=== PATIENT | female | born 1980 | race Caucasian/White ===

== ENCOUNTER 2016-10-17 13:25 | Emergency (ER) | payer OTHER ==
[~2016-10-17] VITALS: Ht 157.5 cm; Wt 103.9 kg
[~2016-10-17 13:25] MED LIST: CETI10TA16 PO; CIPR250T30 PO; FLUC150T PO; IBUP-1027 PO; OXYC-323 PO
[2016-10-17] MEDS ORDERED: IV NORMAL SALINE 1000ML BAG 1,000 ML IV ONE (14:00)
[2016-10-17] MEDS ORDERED: ONDANSETRON PF 4 MG/2 ML VIAL. IV ONE (14:00)
[2016-10-17 14:05] LABS: BILIRUBIN,URINE NEGATIVE (NEG); GLUCOSE,URINE NEGATIVE (NEG); NITRITE,URINE NEGATIVE (NEG); PROTEIN,URINE NEGATIVE (NEG-TRACE); UROBILINOGEN,URINE 0.2 mg/dL (0.2 mg/dL)
[2016-10-17 14:06] LABS: BASO % 1 % (0-3); EOS % 2 % (0-3); HEMATOCRIT 40.6 % (36.0-47.0); HEMOGLOBIN 13.5 g/dL (12.0-15.5); LYMPH % 41 % (24-48); MEAN CORPUSCULAR HEMOGLOBIN 31 pg (25-35); MEAN CORPUSCULAR HGB CONC 33 g/dL (31-37); MEAN CORPUSCULAR VOLUME 94 fL (79-100); MONO % 7 % (0-9); NEUT % 49 % (31-73); PLATELET COUNT 220 x10^3/uL (140-400); RED BLOOD COUNT 4.31 x10^6/uL (3.50-5.40); RED CELL DISTRIBUTION WIDTH 14.1 % (11.5-14.5)
[2016-10-17] MEDS: fentaNYL PF VIAL 100 MCG/2 ML VIAL IV PRN ×3 (14:09→15:35)
[2016-10-17 14:17] LABS: CALCIUM 8.6 mg/dL (8.5-10.1); CREATININE 0.9 mg/dL (0.6-1.0); GFR 72.1; POTASSIUM 3.9 mmol/L (3.5-5.1)
[2016-10-17 14:22] LABS: ALBUMIN/GLOBULIN RATIO 1.1 (1.0-1.7); TOTAL BILIRUBIN 0.2 mg/dL (0.2-1.0); TOTAL PROTEIN 7.7 g/dL (6.4-8.2)
[2016-10-17 14:29] LABS: BACTERIA,URINE MODERATE /HPF (0-FEW); RBC,URINE OCC /HPF (0-2); SQUAMOUS EPITHELIAL CELL,UR FEW /LPF
--- NOTE | 2016-10-17 14:57 | RAD ---
Abdominal ultrasound, 10/17/2016: History: Right upper quadrant pain The gallbladder is not well distended, apparently due to the patient's nonfasting state. No gallstones are seen. No bile duct dilatation is evident. The liver demonstrates increased echogenicity in a diffuse pattern most compatible with fatty change. No hepatic mass is evident. The visualized portions of the pancreas, spleen and both kidneys are unremarkable. The abdominal aorta and inferior vena cava show no abnormality. No free fluid is evident in the abdomen. IMPRESSION: 1. Hepatic steatosis. 2. No acute abdominal abnormality is detected.
[2016-10-17 15:04] VITALS: BP 112/70
[2016-10-17] MEDS ORDERED: ONDA4TAB10 SL (15:30)
[2016-10-17] MEDS ORDERED: RANI150T6 PO (15:30)
--- NOTE | 2016-10-17 15:30 | PHYS DOC ---
Past Medical History Past Medical History: High Cholesterol, Other Additional Past Medical Histor: hx iv meth use Past Surgical History: Tubal ligation, Other Additional Past Surgical Histo: jaw repair Alcohol Use: None Drug Use: None Social History Narrative: hx iv meth user Adult General Chief Complaint Chief Complaint: ABDOMINAL PAIN HPI HPI Patient is a 35 year old female who presents with abdominal pain. THe patient reports 3 day history of RUQ abdominal pain associated with nausea & vomiting x 2. She denies fevers/chills, hematemesis, diarrhea, constipation, hematochezia/ melena, dysuria/hematuria. Denies previous history of similar symptoms. Pain worse when eating greasy food. She has history of tubal ligation. Family history of gallbladder disease. Review of Systems Review of Systems Constitutional: Denies fever or chills Eyes: Denies change in visual acuity HENT: Denies nasal congestion or sore throat Respiratory: Denies cough or shortness of breath Cardiovascular: Denies chest pain or edema GI: Reports abdominal pain, nausea, vomiting, denies bloody stools or diarrhea : Denies dysuria or hematuria Musculoskeletal: Denies back pain or joint pain Integument: Denies rash or skin lesions Neurologic: Denies headache, focal weakness or sensory changes Current Medications Current Medications Current Medications Medications (Trade) Dose Ordered Sig/Ruel Start Time Stop Time Status Last Admin Dose Admin Fentanyl Citrate (Fentanyl 2ml Vial) 50 mcg PRN Q15MIN PRN 10/17/16 14:00 10/17/16 15:51 DC 10/17/16 15:35 50 MCG Ondansetron HCl (Zofran) 4 mg 1X ONCE 10/17/16 14:00 10/17/16 14:01 DC 10/17/16 14:10 4 MG Sodium Chloride 1,000 ml @ 1,000 mls/hr 1X ONCE 10/17/16 14:00 10/17/16 14:59 DC 10/17/16 14:10 1,000 MLS/HR Allergies Allergies Allergies Coded Allergies Type Severity Reaction Last Updated Verified No Known Drug Allergies 11/22/15 No Physical Exam Physical Exam Constitutional: obese, no acute distress, non-toxic appearance. HENT: Normocephalic, atraumatic, bilateral external ears normal, oropharynx moist, nose normal. Eyes: conjunctiva normal, no discharge. Neck: supple, no stridor. Cardiovascular: RRR, no murmurs, no edema. Lungs & Thorax: LCTAB, no wheezing, no respiratory distress. Abdomen: soft, RUQ tenderness without rebound/guarding, no masses or pulsatile masses, nondistended. Skin: Warm, dry, no erythema, no rash. Back: No CVA tenderness. Extremities: No tenderness, no edema. Neurologic: Alert and oriented X 3, no focal deficits noted. Psychologic: Affect normal, judgement normal, mood normal. Current Patient Data Vital Signs Vital Signs Date Time Temp Pulse Resp B/P (MAP) Pulse Ox O2 Delivery O2 Flow Rate FiO2 10/17/16 15:04 80 14 112/70 (84) 99 Room Air 10/17/16 13:41 98.0 98.0 Lab Values Laboratory Tests Test 10/17/16 12:47 10/17/16 13:35 10/17/16 13:54 POC Urine HCG, Qualitative Hcg negative (Negative) Urine Collection Type Void Urine Color Yellow Urine Clarity Clear Urine pH 8.0 Urine Specific Beaver 1.020 Urine Protein Negative mg/dL (NEG-TRACE) Urine Glucose (UA) Negative mg/dL (NEG) Urine Ketones (Stick) Negative mg/dL (NEG) Urine Blood Negative (NEG) Urine Nitrite Negative (NEG) Urine Bilirubin Negative (NEG) Urine Urobilinogen Dipstick 0.2 mg/dL (0.2 mg/dL) Urine Leukocyte Esterase Trace (NEG) Urine RBC Occ /HPF (0-2) Urine WBC 1-4 /HPF (0-4) Urine Squamous Epithelial Cells Few /LPF Urine Amorphous Sediment Present /HPF Urine Bacteria Moderate /HPF (0-FEW) Urine Mucus Slight /LPF Sodium Level 142 mmol/L (136-145) Potassium Level 3.9 mmol/L (3.5-5.1) Chloride Level 109 mmol/L (98-107) H Carbon Dioxide Level 20 mmol/L (21-32) L Anion Gap 13 (6-14) Blood Urea Nitrogen 11 mg/dL (7-20) Creatinine 0.9 mg/dL (0.6-1.0) Estimated GFR (Cockcroft-Gault) 72.1 BUN/Creatinine Ratio 12 (6-20) Glucose Level 98 mg/dL (70-99) Calcium Level 8.6 mg/dL (8.5-10.1) Total Bilirubin 0.2 mg/dL (0.2-1.0) Aspartate Amino Transferase (AST) 20 U/L (15-37) Alanine Aminotransferase (ALT) 31 U/L (14-59) Alkaline Phosphatase 70 U/L (46-116) Total Protein 7.7 g/dL (6.4-8.2) Albumin 4.0 g/dL (3.4-5.0) Albumin/Globulin Ratio 1.1 (1.0-1.7) Lipase 218 U/L (73-393) White Blood Count 5.0 x10^3/uL (4.0-11.0) Red Blood Count 4.31 x10^6/uL (3.50-5.40) Hemoglobin 13.5 g/dL (12.0-15.5) Hematocrit 40.6 % (36.0-47.0) Mean Corpuscular Volume 94 fL (79-100) Mean Corpuscular Hemoglobin 31 pg (25-35) Mean Corpuscular Hemoglobin Concent 33 g/dL (31-37) Red Cell Distribution Width 14.1 % (11.5-14.5) Platelet Count 220 x10^3/uL (140-400) Neutrophils (%) (Auto) 49 % (31-73) Lymphocytes (%) (Auto) 41 % (24-48) Monocytes (%) (Auto) 7 % (0-9) Eosinophils (%) (Auto) 2 % (0-3) Basophils (%) (Auto) 1 % (0-3) Neutrophils # (Auto) 2.4 x10^3uL (1.8-7.7) Lymphocytes # (Auto) 2.0 x10^3/uL (1.0-4.8) Monocytes # (Auto) 0.4 x10^3/uL (0.0-1.1) Eosinophils # (Auto) 0.1 x10^3/uL (0.0-0.7) Basophils # (Auto) 0.0 x10^3/uL (0.0-0.2) Laboratory Tests 10/17/16 13:54 Laboratory Tests 10/17/16 13:35 EKG EKG [] Radiology/Procedures Radiology/Procedures PROCEDURE: ABDOMEN COMPLETE Abdominal ultrasound, 10/17/2016: History: Right upper quadrant pain The gallbladder is not well distended, apparently due to the patient's nonfasting state. No gallstones are seen. No bile duct dilatation is evident. The liver demonstrates increased echogenicity in a diffuse pattern most compatible with fatty change. No hepatic mass is evident. The visualized portions of the pancreas, spleen and both kidneys are unremarkable. The abdominal aorta and inferior vena cava show no abnormality. No free fluid is evident in the abdomen. IMPRESSION: 1. Hepatic steatosis. 2. No acute abdominal abnormality is detected. DICTATED and SIGNED BY: DENISHA FUNK MD DATE: 10/17/16 1849[] Course & Med Decision Making Course & Med Decision Making Pertinent Labs and Imaging studies reviewed. (See chart for details) The patient presents with RUQ pain & vomiting. Gave IV fluids, zofran, pain medication. Labs unremarkable. US shows contracted gallbladder but no obvious stones or cholecystitis. Patient felt better. Recommend rest, PO hydration, zofran for nausea, try zantac, follow up with primary care in 2-3 days. Come back for high fever, severe pain, uncontrolled vomiting, any otherwise worsening condition. Discharged home in stable condition. [] Dragon Disclaimer Dragon Disclaimer This electronic medical record was generated, in whole or in part, using a voice recognition dictation system. Departure Departure Impression: Primary Impression: Abdominal pain Disposition: 01 HOME, SELF-CARE Condition: IMPROVED Referrals: IRVIN TAVAREZ MD (PCP) Patient Instructions: Abdominal Pain, [id number] Additional Instructions: You were seen in the emergency department today for abdominal pain. Labs, urine test, and ultrasound did not show serious cause of symptoms. Please rest, drink fluids, take Zofran for nausea, use Zantac for pain. Follow-up with primary care physician in 2-3 days if not improving. Return to the emergency department for high fever, severe pain, uncontrolled vomiting, any otherwise worsening condition. Scripts Ondansetron (ZOFRAN ODT) 4 Mg Tab.rapdis 1 TAB SL Q8HRS, #10 TAB Prov: SILVIO SHEPHERD MD 10/17/16 Ranitidine Hcl (ZANTAC) 150 Mg Tablet 150 MG PO DAILY, #15 TAB Prov: SILVIO SHEPHERD MD 10/17/16 SILVIO SHEPHERD MD Oct 17, 2016 15:30
== END 2016-10-17 15:51 | disposition home or self-care (01) ==
LOC: ER 13:25
DX: R11.2 Nausea with vomiting, unspecified (principal); R10.11 Right upper quadrant pain; E78.00 Pure hypercholesterolemia, unspecified; Z98.51 Tubal ligation status
CPT/HCPCS: 36415; 76700; 80053; 81001; 81025; 83690; 85025; 87086; 96361; 96374; 96375; 96376; 99285; J2405; J3010; J7030

== ENCOUNTER 2017-03-15 12:35 | Emergency (ER) | payer OTHER ==
[2017-03-15 13:24] LABS: URINE HCG POC HCG POSITIVE (Negative)
[2017-03-15 13:28] LABS: BILIRUBIN,URINE NEGATIVE (NEG); CLARITY,URINE CLOUDY; COLOR,URINE YELLOW; GLUCOSE,URINE NEGATIVE (NEG); NITRITE,URINE NEGATIVE (NEG); PH,URINE 7.5; PROTEIN,URINE NEGATIVE (NEG-TRACE); UROBILINOGEN,URINE 0.2 mg/dL (0.2 mg/dL)
[2017-03-15 13:29] LABS: SQUAMOUS EPITHELIAL CELL,UR FEW /LPF
[2017-03-15 13:30] LABS: AMORPHOUS SEDIMENT,UR PRESENT /HPF; BACTERIA,URINE 0 /HPF (0-FEW); RBC,URINE 0 /HPF (0-2); WBC,URINE OCC /HPF (0-4)
[2017-03-15] MEDS: fentaNYL PF VIAL 100 MCG/2 ML VIAL IV ×2 (14:00→15:05)
[2017-03-15] MEDS: ONDANSETRON PF 4 MG/2 ML VIAL. IV (14:00)
[2017-03-15] MEDS: IV NORMAL SALINE 1000ML BAG 1,000 ML IV (14:00)
[2017-03-15 15:23] LABS: ADD MAN DIFF? NO
[2017-03-15 15:35] LABS: BASO % 1 % (0-3); EOS # 0.1 x10^3/uL (0.0-0.7); EOS % 2 % (0-3); HEMATOCRIT 36.9 % (36.0-47.0); LYMPH # 1.9 x10^3/uL (1.0-4.8); LYMPH % 32 % (24-48); MEAN CORPUSCULAR HEMOGLOBIN 31 pg (25-35); MEAN CORPUSCULAR HGB CONC 33 g/dL (31-37); MEAN CORPUSCULAR VOLUME 95 fL (79-100); MONO # 0.4 x10^3/uL (0.0-1.1); MONO % 6 % (0-9); NEUT # 3.6 x10^3uL (1.8-7.7); NEUT % 60 % (31-73); PLATELET COUNT 237 x10^3/uL (140-400); RED BLOOD COUNT 3.87 x10^6/uL (3.50-5.40); WHITE BLOOD COUNT 6.1 x10^3/uL (4.0-11.0)
[2017-03-15 15:47] LABS: ANION GAP 13 (6-14); BLOOD UREA NITROGEN 12 mg/dL (7-20); BUN/CREATININE RATIO 20 (6-20); CALCIUM 7.9 mg/dL (8.5-10.1); CARBON DIOXIDE 18 mmol/L (21-32); CHLORIDE 108 mmol/L (98-107); CREATININE 0.6 mg/dL (0.6-1.0); GFR 114.4; GLUCOSE 86 mg/dL (70-99); POTASSIUM 3.7 mmol/L (3.5-5.1); SODIUM 139 mmol/L (136-145)
[2017-03-15 15:53] LABS: ALBUMIN 3.6 g/dL (3.4-5.0); ALBUMIN/GLOBULIN RATIO 1.1 (1.0-1.7); ALK PHOS 57 U/L (46-116); ALT (SGPT) 21 U/L (14-59); AST (SGOT) 12 U/L (15-37); TOTAL BILIRUBIN 0.1 mg/dL (0.2-1.0)
[2017-03-18 19:16] LABS: CHLAMYDIA PROBE Negative (Negative); GC PROBE Negative (Negative)
== END 2017-03-15 17:26 | disposition home or self-care (01) ==
LOC: ER 12:35
DX: O26.891 Other specified pregnancy related conditions, first trimester (principal); R10.32 Left lower quadrant pain; E78.00 Pure hypercholesterolemia, unspecified; Z98.51 Tubal ligation status
CPT/HCPCS: 36415; 76801; 80053; 81001; 81025; 84702; 85025; 86850; 86900; 86901; 87491; 87591; 96374; 96375; 96376; 99285-25; J2405; J3010; J7030; Q0111

== ENCOUNTER → 2017-12-11 | Day surgery (SDC) | payer OTHER ==
[~2017-12-11] MED LIST changes: +ATOR10TA60 PO; +BUPIVAC MPF-EPI 0.5%-1:200000 30 ML VIAL. ONE; +DESFLURANE 31 TO 60 MINUTES IH ONE; +DESFLURANE 61 TO 120 MINUTES IH ONE; +DEXAMETHASONE SOD PHOS 20 MG/5 ML VIAL. ONE; +GLYCOPYRROLATE 1 MG/5 ML VIAL. ONE; +HYDR-2762 PO; +HYDR-971 PO; +HYDROmorphone 2 MG/ML VIAL IV PRN; +IV RINGERS,LACTATED 1000ML 1,000 ML IV SCH; +KETOROLAC 30 MG/ML INJ FOR OR. INJ ONE; +LIDOCAINE 1% PF 2 ML VIAL. ID PRN; +MIDAZOLAM HCL/PF 2 MG/2 ML VIAL. ONE; +MORPHINE SULFATE 2 MG/ML VIAL. IV PRN; +NEOSTIGMINE METHYLSULFATE 5 MG/5 ML SYRINGE. ONE; +ONDA4TAB10 SL; +ONDANSETRON PF 4 MG/2 ML VIAL. ONE; +PROCHLORPERAZINE 10 MG/2 ML VIAL. IV PRN; +PROCHLORPERAZINE 10 MG/2 ML VIAL. ONE; +PROPOFOL 20 ML IV ONE; +RANI150T21 PO; +ROCURONIUM 50 MG/5 ML VIAL. ONE; +SUCCINYLCHOLINE 200 MG/10 ML VIAL. ONE; +TOPI50TA38 PO; +fentaNYL PF VIAL 100 MCG/2 ML VIAL ONE; +oxyCODONE/APAP 5/325 1 TAB TABLET PO PRN
[2017-12-11 07:48] LABS: U PREG PATIENT NEGATIVE (NEG)
[2017-12-11] MEDS: fentaNYL PF VIAL 100 MCG/2 ML VIAL IV PRN ×2 (13:14→13:23)
[2017-12-11 14:05] VITALS: BP 105/66
--- NOTE | 2017-12-13 15:08 | PATHOLOGY ---
[facility] Accession Number: [id number] . 01 Material submitted: . BILATERAL SALPINGO . 01 Clinical history: . Sterilization . 02 Diagnosis: Bilateral salpingectomy: - Complete cross sections of unremarkable fallopian tube. (MAP:[facility] 12/13/2017) RUST/12/13/2017 . 02 Electronically signed: . Brice Ruffin MD, Pathologist NPI- [id number] . 01 Gross description: . The specimen is received in formalin, labeled "Crystal Elder, bilateral salpingo". Received are two fallopian tubes measuring 2.8 and 5.0 cm in length, with an average diameter of 0.6 cm. The smaller fallopian tube has a metallic clip loosely attached and is non-fimbriated. The larger fallopian tube is fimbriated. The smaller fallopian tube is inked black. The specimen is submitted representatively in cassette A1. (CAA; 12/12/2017) QAC/QAC . 02 Pathologist provided ICD-10: Z30.2 . 02 CPT . 218737 Specimen Comment: A courtesy copy of this report has been sent to Specimen Comment: [phone], . Specimen Comment: Report sent to / DR TAVAREZ Performed at: [address] [facility], [place], [place] [id number] MD Sanchez Gutierrez MD Phone: [phone] Performed at: [address] [id number] MD Ester Merino MD Phone: [phone]
--- NOTE | 2018-01-08 06:16 | PDOC ---
BRIEF OPERATIVE NOTE Date: Dec 11, 2017 Pre-Op Diagnosis Failed tubla Post-Op Diagnosis Same Procedure Performed Lap bilateral salpingectomy Surgeon Rory Armored Car Guard And Driver None Anesthesia Type: General Blood Loss 10cc Specimens Obtained R and left ova ducts Complications None JAYMIE HU MD Jan 08, 2018 06:16
--- NOTE | 2018-01-08 07:00 | OP ---
DATE OF SURGERY: 12/11/2017 PREOPERATIVE DIAGNOSIS: Multiparous, failed previous tubal ligation. POSTOPERATIVE DIAGNOSES: Multiparous failed previous tubal ligation. PROCEDURE: Laparoscopic bilateral salpingectomy. SURGEON: Jaymie Valadez MD GLOVE PRINTER: None. ANESTHESIA: General. ESTIMATED BLOOD LOSS: 20 mL. FLUIDS: Crystalloid. SPECIMENS: Right and left oviducts. COMPLICATIONS: None. CONDITION: Stable. DESCRIPTION OF PROCEDURE: Risks, benefits, indications, alternatives and expectations were discussed in detail with the patient. The patient was brought to the OR theater and placed in the dorsal lithotomy position in [facility]. Under adequate general anesthesia, the patient prepped and draped in the usual sterile manner. A sponge stick was placed in the vaginal vault. Attention was then turned to the anterior abdominal wall. A small transverse infraumbilical incision was made sharply with the scalpel. Through this via the Visiport, a 5 mm disposable trocar was placed under direct visualization after pneumoperitoneum was created. Two lateral trocars sites were placed on either side after infiltrating the area with 0.5% Marcaine with epinephrine; 5 mm disposable trocars were placed through the previous incisions that were made. The patient was placed in Trendelenburg. First the right tube was identified followed to its fimbriated end using the Enseal clamp, cut, cautery device. The right tube was transected down the mesosalpinx with good hemostasis and good resection. The same procedure was carried out on the opposite side. The tubes were brought through the port individually and handed off the operative field. Good hemostasis was assured. Suction irrigation was performed. No further bleeding was noted. All of the viewed intra-abdominal pelvic organs appeared normal. The procedure was terminated. The video laparoscope was removed. All laparoscopic instruments were removed. Pneumoperitoneum was allowed to dissipate. All trocar sleeves were removed. The incisions were reapproximated with 4-0 Monocryl in subcuticular fashion. An infraumbilical incision was also infiltrated with 0.5% Marcaine with epinephrine. The procedure was terminated. Sponge, needle and instrument counts were correct x 2 per the nursing staff. Vaginal sponge stick was also accounted for. The patient went to postop anesthesia recovery in stable condition. JAYMIE VALADEZ MD DR: THERESA/katlyn JOB#: [id number] / [id number]
== END | disposition home or self-care (01) ==
LOC: SURG 07:24
PROVIDERS: ATTEND Specialist
DX: Z30.2 Encounter for sterilization (principal); E78.00 Pure hypercholesterolemia, unspecified; J45.909 Unspecified asthma, uncomplicated; E66.9 Obesity, unspecified; M19.90 Unspecified osteoarthritis, unspecified site; F32.9 Major depressive disorder, single episode, unspecified; F41.9 Anxiety disorder, unspecified; F17.210 Nicotine dependence, cigarettes, uncomplicated; Z79.899 Other long term (current) drug therapy; Z79.1 Long term (current) use of non-steroidal anti-inflammatories (NSAID); Z98.51 Tubal ligation status; Z98.890 Other specified postprocedural states
CPT/HCPCS: 58661; 81025; 88302; A7015; J0330; J0780; J1100; J1885; J2250; J2405; J2704; J2710; J3010; J3490; J7120

== ENCOUNTER 2018-04-06 19:36 | Emergency (ER) | payer OTHER ==
[~2018-04-06] VITALS: Ht 157.5 cm; Wt 114.3 kg
[~2018-04-06 19:36] MED LIST changes: -BUPIVAC MPF-EPI 0.5%-1:200000 30 ML VIAL. ONE; -DESFLURANE 31 TO 60 MINUTES IH ONE; -DESFLURANE 61 TO 120 MINUTES IH ONE; -DEXAMETHASONE SOD PHOS 20 MG/5 ML VIAL. ONE; -GLYCOPYRROLATE 1 MG/5 ML VIAL. ONE; -HYDR-2762 PO; +HYDR-2765 PO; +HYDR-3164 PO; -HYDR-971 PO; -HYDROmorphone 2 MG/ML VIAL IV PRN; -IV RINGERS,LACTATED 1000ML 1,000 ML IV SCH; -KETOROLAC 30 MG/ML INJ FOR OR. INJ ONE; -LIDOCAINE 1% PF 2 ML VIAL. ID PRN; -MIDAZOLAM HCL/PF 2 MG/2 ML VIAL. ONE; -MORPHINE SULFATE 2 MG/ML VIAL. IV PRN; -NEOSTIGMINE METHYLSULFATE 5 MG/5 ML SYRINGE. ONE; -ONDANSETRON PF 4 MG/2 ML VIAL. ONE; -OXYC-323 PO; +OXYC1TAB15 PO; -PROCHLORPERAZINE 10 MG/2 ML VIAL. IV PRN; -PROCHLORPERAZINE 10 MG/2 ML VIAL. ONE; -PROPOFOL 20 ML IV ONE; +RANI-376 PO; -RANI150T21 PO; -ROCURONIUM 50 MG/5 ML VIAL. ONE; -SUCCINYLCHOLINE 200 MG/10 ML VIAL. ONE; -fentaNYL PF VIAL 100 MCG/2 ML VIAL ONE; -oxyCODONE/APAP 5/325 1 TAB TABLET PO PRN
[2018-04-06] MEDS ORDERED: IV NORMAL SALINE 1000ML BAG 1,000 ML IV SCH (19:59)
[2018-04-06] MEDS ORDERED: KETOROLAC 30 MG/ML VIAL. IV ONE (20:00)
--- NOTE | 2018-04-06 20:05 | PHYS DOC ---
Past Medical History Past Medical History: High Cholesterol, Other Additional Past Medical Histor: hx iv meth use Past Surgical History: Tubal ligation, Other Additional Past Surgical Histo: jaw repair Alcohol Use: None Drug Use: None Adult General Chief Complaint Chief Complaint: PELVIC PAIN HPI HPI Patient is a 37 year old female who presents with pelvic pain and vaginal discharge. This is been present for the past several months much worse over the past 2 weeks. Patient called her REGULATOR TESTER who prescribed antibiotics without any improvement in the pain. She has an appointment with her primary care physician tomorrow but felt that the pain was too bad to wait. Patient is sexually active , one partner. Reports that the pain is bilateral pelvis. Patient has a history of a tubal ligation which failed resulting in the and had a second tubal ligation with part of the tube being removed November 2017. She denies any dysuria. Denies any back pain or flank pain. Denies any fever.[] Review of Systems Review of Systems Constitutional: Denies fever or chills [] Eyes: Denies change in visual acuity, redness, or eye pain [] HENT: Denies nasal congestion or sore throat [] Respiratory: Denies cough or shortness of breath [] Cardiovascular: No chest pain or palpitations[] GI: Denies abdominal pain, nausea, vomiting, bloody stools or diarrhea [] : Denies dysuria or hematuria [] Musculoskeletal: Denies back pain or joint pain [] Integument: Denies rash or skin lesions [] Neurologic: Denies headache, focal weakness or sensory changes [] Endocrine: Denies polyuria or polydipsia [] All other systems were reviewed and found to be within normal limits, except as documented in this note. Current Medications Current Medications Current Medications Medications (Trade) Dose Ordered Sig/[facility] Start Time Stop Time Status Last Admin Dose Admin Ketorolac Tromethamine (Toradol 30mg Vial) 30 mg 1X ONCE 04/06/18 20:00 04/06/18 20:05 DC 04/06/18 20:00 30 MG Sodium Chloride 1,000 ml @ 1,000 mls/hr Q1H 04/06/18 19:59 04/06/18 20:58 DC 04/06/18 19:59 1,000 MLS/HR Allergies Allergies Allergies Coded Allergies Type Severity Reaction Last Updated Verified No Known Drug Allergies 12/11/17 No Physical Exam Physical Exam Constitutional: Well developed, well nourished, no acute distress, non-toxic appearance. [] HENT: Normocephalic, atraumatic, bilateral external ears normal, oropharynx moist, no oral exudates, nose normal. [] Eyes: PERRLA, EOMI, conjunctiva normal, no discharge. [] Neck: Normal range of motion, no tenderness, supple, no stridor. [] Cardiovascular:Heart rate is tachycardic with a regular rhythm, no murmur [] Lungs & Thorax: Bilateral breath sounds clear to auscultation [] Abdomen: Bowel sounds normal, soft, no tenderness, no masses, no pulsatile masses. Pelvic exam: External genitalia, Muenster's, urethra, Bartholens: Normal. vaginal vault: Moderate milky discharge. Cervix: Parous os, no friable cervix, no cervical motion tenderness, no drainage from the cervical os [] Skin: Warm, dry, no erythema, no rash. [] Back: No tenderness, no CVA tenderness. [] Extremities: No tenderness, no cyanosis, no clubbing, ROM intact, no edema. [] Neurologic: Alert and oriented X 3, normal motor function, normal sensory function, no focal deficits noted. [] Psychologic: Affect normal, judgement normal, mood normal. [] Current Patient Data Vital Signs Vital Signs Date Time Temp Pulse Resp B/P (MAP) Pulse Ox O2 Delivery O2 Flow Rate FiO2 04/06/18 20:00 98.3 119 18 147/83 (104) 99 Room Air 98.3 Lab Values Laboratory Tests Test 04/06/18 19:49 04/06/18 20:11 POC Urine HCG, Qualitative Hcg negative (Negative) White Blood Count 8.6 x10^3/uL (4.0-11.0) Red Blood Count 4.25 x10^6/uL (3.50-5.40) Hemoglobin 13.1 g/dL (12.0-15.5) Hematocrit 39.2 % (36.0-47.0) Mean Corpuscular Volume 92 fL (79-100) Mean Corpuscular Hemoglobin 31 pg (25-35) Mean Corpuscular Hemoglobin Concent 34 g/dL (31-37) Red Cell Distribution Width 13.8 % (11.5-14.5) Platelet Count 300 x10^3/uL (140-400) Neutrophils (%) (Auto) 64 % (31-73) Lymphocytes (%) (Auto) 27 % (24-48) Monocytes (%) (Auto) 6 % (0-9) Eosinophils (%) (Auto) 3 % (0-3) Basophils (%) (Auto) 1 % (0-3) Neutrophils # (Auto) 5.4 x10^3uL (1.8-7.7) Lymphocytes # (Auto) 2.3 x10^3/uL (1.0-4.8) Monocytes # (Auto) 0.5 x10^3/uL (0.0-1.1) Eosinophils # (Auto) 0.3 x10^3/uL (0.0-0.7) Basophils # (Auto) 0.1 x10^3/uL (0.0-0.2) Sodium Level 140 mmol/L (136-145) Potassium Level 4.0 mmol/L (3.5-5.1) Chloride Level 104 mmol/L (98-107) Carbon Dioxide Level 21 mmol/L (21-32) Anion Gap 15 (6-14) H Blood Urea Nitrogen 13 mg/dL (7-20) Creatinine 0.9 mg/dL (0.6-1.0) Estimated GFR (Cockcroft-Gault) 71.3 BUN/Creatinine Ratio 14 (6-20) Glucose Level 97 mg/dL (70-99) Calcium Level 9.3 mg/dL (8.5-10.1) Total Bilirubin 0.4 mg/dL (0.2-1.0) Aspartate Amino Transferase (AST) 33 U/L (15-37) Alanine Aminotransferase (ALT) 28 U/L (14-59) Alkaline Phosphatase 86 U/L (46-116) Total Protein 8.2 g/dL (6.4-8.2) Albumin 4.1 g/dL (3.4-5.0) Albumin/Globulin Ratio 1.0 (1.0-1.7) Lipase 174 U/L (73-393) Laboratory Tests 04/06/18 20:11 Laboratory Tests 04/06/18 20:11 Microbiology 04/06/18 Wet Prep - Final, Complete EKG EKG [] Radiology/Procedures Radiology/Procedures Transvaginal ultrasound pelvis HISTORY: Pelvic pain, D&C last month Transvaginal sonographic examination of the pelvis was performed and multiple static images were obtained. The ovaries are seen with normal blood flow. The right ovary measures 2.7 x 2.4 x 2.3 cm. The left ovary measures 2.9 x 1.8 x 1.7 cm. There is a dominant follicle in the right ovary measures 1.8 x 1.5 x 2.3 cm. The endometrial of the uterus measures 10 mm in thickness. There is a trace of fluid in the cervix which is nonspecific. There is nabothian cysts in the cervix. There is a trace of fluid adjacent to the right ovary. IMPRESSION: Trace of fluid adjacent to the right ovary could be from a ruptured cyst. No significant findings. This interpretation assumes the patient is not . Electronically signed by: Errol León III, MD (04/06/2018 9:33 PM) [facility][] Course & Med Decision Making Course & Med Decision Making Pertinent Labs and Imaging studies reviewed. (See chart for details) ED course and medical decision making: Patient arrived, placed in bed, tolerated exam well. Patient was given IV fluids, this was complicated by patient's venous scarring due to history of IV drug abuse however eventually able to obtain IV access and give the fluids. Due to concern about possible gonorrhea or chlamydia given the pain patient was given antibiotics to cover these. Cultures are still pending. There was no evidence of PID on exam. Patient does not appear to have bacterial vaginosis based on laboratory testing. Patient does not have an ectopic since she is not . She is nontoxic and so will her for outpatient management.[] Dragon Disclaimer Dragon Disclaimer This electronic medical record was generated, in whole or in part, using a voice recognition dictation system. Departure Departure Impression: Primary Impression: Pelvic pain Additional Impression: Vaginal discharge Disposition: 01 HOME, SELF-CARE Condition: IMPROVED Referrals: IRVIN TAVAREZ MD (PCP) Follow-up in 2 days Patient Instructions: Pelvic Pain, Female Additional Instructions: Follow-up with your regular doctor in 2 days. Return to the ER if you develop a fever of more than 101�, worsening pain, or any other concerns. Scripts Tramadol Hcl (TRAMADOL HCL) 50 Mg Tablet 50 MG PO Q6HRS PRN for PAIN, #20 TAB Prov: VIRGILIO PEREZ DO 04/06/18 Meloxicam (MELOXICAM) 7.5 Mg Tablet 7.5 MG PO DAILY, #20 TAB Prov: VIRGILIO PEREZ DO 04/06/18 Doxycycline Hyclate (DOXYCYCLINE HYCLATE) 100 Mg Tablet 100 MG PO BID, #20 TAB Prov: VIRGILIO PEREZ DO 04/06/18 Problem Qualifiers VIRGILIO PEREZ DO Apr 06, 2018 20:05
[2018-04-06 20:29] LABS: BASO # 0.1 x10^3/uL (0.0-0.2); BASO % 1 % (0-3); EOS # 0.3 x10^3/uL (0.0-0.7); EOS % 3 % (0-3); HEMATOCRIT 39.2 % (36.0-47.0); HEMOGLOBIN 13.1 g/dL (12.0-15.5); LYMPH # 2.3 x10^3/uL (1.0-4.8); LYMPH % 27 % (24-48); MEAN CORPUSCULAR HEMOGLOBIN 31 pg (25-35); MEAN CORPUSCULAR HGB CONC 34 g/dL (31-37); MEAN CORPUSCULAR VOLUME 92 fL (79-100); MONO # 0.5 x10^3/uL (0.0-1.1); MONO % 6 % (0-9); NEUT # 5.4 x10^3uL (1.8-7.7); NEUT % 64 % (31-73); PLATELET COUNT 300 x10^3/uL (140-400); RED BLOOD COUNT 4.25 x10^6/uL (3.50-5.40); RED CELL DISTRIBUTION WIDTH 13.8 % (11.5-14.5); WHITE BLOOD COUNT 8.6 x10^3/uL (4.0-11.0)
[2018-04-06 20:30] LABS: CALCIUM 9.3 mg/dL (8.5-10.1); CREATININE 0.9 mg/dL (0.6-1.0); GFR 71.3
[2018-04-06 20:35] LABS: ALBUMIN 4.1 g/dL (3.4-5.0); TOTAL BILIRUBIN 0.4 mg/dL (0.2-1.0); TOTAL PROTEIN 8.2 g/dL (6.4-8.2)
--- NOTE | 2018-04-06 21:38 | RAD ---
Transvaginal ultrasound pelvis HISTORY: Pelvic pain, D&C last month Transvaginal sonographic examination of the pelvis was performed and multiple static images were obtained. The ovaries are seen with normal blood flow. The right ovary measures 2.7 x 2.4 x 2.3 cm. The left ovary measures 2.9 x 1.8 x 1.7 cm. There is a dominant follicle in the right ovary measures 1.8 x 1.5 x 2.3 cm. The endometrial of the uterus measures 10 mm in thickness. There is a trace of fluid in the cervix which is nonspecific. There is nabothian cysts in the cervix. There is a trace of fluid adjacent to the right ovary. IMPRESSION: Trace of fluid adjacent to the right ovary could be from a ruptured cyst. No significant findings. This interpretation assumes the patient is not . Electronically signed by: Errol León III, MD (04/06/2018 9:33 PM) [facility]
[2018-04-06 22:00] VITALS: BP 121/71
[2018-04-06 22:10] LABS: BILIRUBIN,URINE NEGATIVE (NEG); CLARITY,URINE CLEAR; COLOR,URINE YELLOW; NITRITE,URINE NEGATIVE (NEG); PROTEIN,URINE NEGATIVE (NEG-TRACE); UROBILINOGEN,URINE 0.2 mg/dL (0.2 mg/dL)
[2018-04-06] MEDS ORDERED: TRAM50TA PO (22:12)
[2018-04-06] MEDS ORDERED: DOXY100T PO (22:12)
[2018-04-06] MEDS ORDERED: MELO7.5T29 PO (22:12)
[2018-04-06 22:30] LABS: BACTERIA,URINE MODERATE /HPF (0-FEW); RBC,URINE 0 /HPF (0-2); SQUAMOUS EPITHELIAL CELL,UR MANY /LPF
[2018-04-06] MEDS ORDERED: cefTRIAXone IM 250 MG VIAL IM ONE (22:30)
[2018-04-06] MEDS ORDERED: ONDANSETRON PF 4 MG/2 ML VIAL. IV ONE (22:30)
[2018-04-06] MEDS ORDERED: AZITHROMYCIN 250 MG TABLET. PO ONE (22:30)
[2018-04-06 22:31] LABS: TRICHOMONAS,URINE PRESENT
[2018-04-08 13:21] LABS: GC PROBE Negative (Negative)
== END 2018-04-06 22:43 | disposition home or self-care (01) ==
LOC: ER 19:36
DX: N89.8 Other specified noninflammatory disorders of vagina (principal); N88.8 Other specified noninflammatory disorders of cervix uteri; R10.2 Pelvic and perineal pain; R00.0 Tachycardia, unspecified; E78.00 Pure hypercholesterolemia, unspecified; Z98.51 Tubal ligation status
CPT/HCPCS: 36415; 76830; 80053; 81001; 81025; 83690; 85025; 87086; 87491; 87591; 96372; 96374; 96375; 99284; J0696; J1885; J2405; J7030; Q0111; Q0144

== ENCOUNTER 2018-05-12 19:31 | Emergency (ER) | payer OTHER ==
[~2018-05-12] VITALS: Ht 157.5 cm; Wt 114.3 kg
[~2018-05-12 19:31] MED LIST changes: +DOXY100T PO; +MELO7.5T29 PO; +TRAM50TA PO
[2018-05-12 20:44] LABS: BILIRUBIN,URINE NEGATIVE (NEG); CLARITY,URINE CLEAR; COLOR,URINE YELLOW; NITRITE,URINE NEGATIVE (NEG); PROTEIN,URINE NEGATIVE (NEG-TRACE); UROBILINOGEN,URINE 0.2 mg/dL (0.2 mg/dL)
[2018-05-12 20:51] LABS: RBC,URINE 0 /HPF (0-2)
[2018-05-12 20:52] LABS: BACTERIA,URINE MODERATE /HPF (0-FEW); SQUAMOUS EPITHELIAL CELL,UR FEW /LPF; TRICHOMONAS,URINE PRESENT; WBC,URINE 20-40 /HPF (0-4)
--- NOTE | 2018-05-12 21:00 | PHYS DOC ---
Past Medical History Past Medical History: High Cholesterol, Other Additional Past Medical Histor: hx iv meth use, CHRONIC BACK PAIN Past Surgical History: Tubal ligation, Other Additional Past Surgical Histo: jaw repair Alcohol Use: None Drug Use: None Social History Narrative: HX OF IV METH USE Adult General Chief Complaint Chief Complaint: ABDOMINAL PAIN [facility] HPI Patient is a 37 year old female presents with a chief complaint of abdominal pain. Patient's abdominal pain is located in her right upper quadrant. Patient' s pain started around 8 AM this morning. Patient states she has associated nausea but has not vomited. She denies any diarrhea. Patient describes the pain as a stabbing sensation. She denies any dysuria or hematuria. Review of Systems Review of Systems Constitutional: Denies fever or chills [] Eyes: Denies change in visual acuity, redness, or eye pain [] HENT: Denies nasal congestion or sore throat [] Respiratory: Denies cough or shortness of breath [] Cardiovascular: No additional information not addressed in HPI [] GI: Denies abdominal pain, nausea, vomiting, bloody stools or diarrhea [] : Denies dysuria or hematuria [] Musculoskeletal: Denies back pain or joint pain [] Integument: Denies rash or skin lesions [] Neurologic: Denies headache, focal weakness or sensory changes [] Endocrine: Denies polyuria or polydipsia [] All other systems were reviewed and found to be within normal limits, except as documented in this note. Current Medications Current Medications Current Medications Medications (Trade) Dose Ordered Sig/Ruel Start Time Stop Time Status Last Admin Dose Admin Iohexol (Omnipaque 300 Mg/ml) 75 ml 1X ONCE 05/12/18 21:30 05/12/18 21:31 DC 05/12/18 22:30 75 ML Ketorolac Tromethamine (Toradol 30mg Vial) 30 mg 1X ONCE 05/12/18 21:15 05/12/18 21:16 DC 05/12/18 21:20 30 MG Morphine Sulfate (Morphine Sulfate) 2 mg 1X ONCE 05/12/18 23:00 05/12/18 23:01 DC 05/12/18 23:04 2 MG Allergies Allergies Allergies Coded Allergies Type Severity Reaction Last Updated Verified No Known Drug Allergies 12/11/17 No Physical Exam Physical Exam Constitutional: Well developed, well nourished, no acute distress, non-toxic appearance. [] HENT: Normocephalic, atraumatic, bilateral external ears normal, oropharynx moist, no oral exudates, nose normal. [] Eyes: PERRLA, EOMI, conjunctiva normal, no discharge. [] Neck: Normal range of motion, no tenderness, supple, no stridor. [] Cardiovascular:Heart rate regular rhythm, no murmur [] Lungs & Thorax: Bilateral breath sounds clear to auscultation [] Abdomen: Bowel sounds normal, soft, no tenderness, no masses, no pulsatile masses. [] Skin: Warm, dry, no erythema, no rash. [] Back: No tenderness, no CVA tenderness. [] Extremities: No tenderness, no cyanosis, no clubbing, ROM intact, no edema. [] Neurologic: Alert and oriented X 3, normal motor function, normal sensory function, no focal deficits noted. [] Psychologic: Affect normal, judgement normal, mood normal. [] Current Patient Data Vital Signs Vital Signs Date Time Temp Pulse Resp B/P (MAP) Pulse Ox O2 Delivery O2 Flow Rate FiO2 05/12/18 22:08 96 20 108/67 (81) 100 Room Air 05/12/18 19:31 97.7 97.7 Lab Values Laboratory Tests Test 05/12/18 19:32 05/12/18 20:05 05/12/18 22:05 Urine Collection Type Void Urine Color Yellow Urine Clarity Clear Urine pH 6.0 Urine Specific [place] 1.025 Urine Protein Negative mg/dL (NEG-TRACE) Urine Glucose (UA) Negative mg/dL (NEG) Urine Ketones (Stick) Negative mg/dL (NEG) Urine Blood Negative (NEG) Urine Nitrite Negative (NEG) Urine Bilirubin Negative (NEG) Urine Urobilinogen Dipstick 0.2 mg/dL (0.2 mg/dL) Urine Leukocyte Esterase Large (NEG) Urine RBC 0 /HPF (0-2) Urine WBC 20-40 /HPF (0-4) Urine Squamous Epithelial Cells Few /LPF Urine Bacteria Moderate /HPF (0-FEW) Urine Mucus Mod /LPF Urine Trichomonas Present POC Urine HCG, Qualitative Hcg negative (Negative) White Blood Count 5.8 x10^3/uL (4.0-11.0) Red Blood Count 3.89 x10^6/uL (3.50-5.40) Hemoglobin 11.9 g/dL (12.0-15.5) L Hematocrit 36.3 % (36.0-47.0) Mean Corpuscular Volume 93 fL (79-100) Mean Corpuscular Hemoglobin 31 pg (25-35) Mean Corpuscular Hemoglobin Concent 33 g/dL (31-37) Red Cell Distribution Width 14.0 % (11.5-14.5) Platelet Count 190 x10^3/uL (140-400) Neutrophils (%) (Auto) 51 % (31-73) Lymphocytes (%) (Auto) 37 % (24-48) Monocytes (%) (Auto) 8 % (0-9) Eosinophils (%) (Auto) 4 % (0-3) H Basophils (%) (Auto) 1 % (0-3) Neutrophils # (Auto) 3.0 x10^3uL (1.8-7.7) Lymphocytes # (Auto) 2.1 x10^3/uL (1.0-4.8) Monocytes # (Auto) 0.5 x10^3/uL (0.0-1.1) Eosinophils # (Auto) 0.2 x10^3/uL (0.0-0.7) Basophils # (Auto) 0.0 x10^3/uL (0.0-0.2) Sodium Level 141 mmol/L (136-145) Potassium Level 3.8 mmol/L (3.5-5.1) Chloride Level 106 mmol/L (98-107) Carbon Dioxide Level 20 mmol/L (21-32) L Anion Gap 15 (6-14) H Blood Urea Nitrogen 12 mg/dL (7-20) Creatinine 0.7 mg/dL (0.6-1.0) Estimated GFR (Cockcroft-Gault) 95.2 BUN/Creatinine Ratio 17 (6-20) Glucose Level 91 mg/dL (70-99) Calcium Level 8.6 mg/dL (8.5-10.1) Total Bilirubin 0.1 mg/dL (0.2-1.0) L Aspartate Amino Transferase (AST) 15 U/L (15-37) Alanine Aminotransferase (ALT) 22 U/L (14-59) Alkaline Phosphatase 64 U/L (46-116) Total Protein 7.1 g/dL (6.4-8.2) Albumin 3.5 g/dL (3.4-5.0) Albumin/Globulin Ratio 1.0 (1.0-1.7) Lipase 113 U/L (73-393) Laboratory Tests 05/12/18 22:05 Laboratory Tests 05/12/18 22:05 EKG EKG [] Radiology/Procedures Radiology/Procedures [] Course & Med Decision Making Course & Med Decision Making Pertinent Labs and Imaging studies reviewed. (See chart for details) Patient was evaluated for chief complaint. Workup consisted of laboratory analysis and radiologic imaging. Results reviewed and discussed with patient. Patient's urine consistent with urinary tract infection. Patient was discharged home on Bactrim and Tylenol 3. Patient instructed to follow up with her primary care physician or WASHROOM ATTENDANT. Dragon Disclaimer Dragon Disclaimer This electronic medical record was generated, in whole or in part, using a voice recognition dictation system. Departure Departure Impression: Primary Impression: UTI (urinary tract infection) Additional Impression: Abdominal pain Disposition: 01 HOME, SELF-CARE Condition: STABLE Referrals: IRVIN TAVAREZ MD (PCP) Patient Instructions: Abdominal Pain, Urinary Tract Infection Scripts Sulfamethoxazole/Trimethoprim (BACTRIM DS TABLET) 1 Each Tablet 1 TAB PO BID, #14 TAB Prov: ELLY WILKS DO 05/13/18 Acetaminophen (ACETAMINOPHEN) 500 Mg Tablet 1 TAB PO BID for pain MDD 2, #60 TAB 1 Refill Prov: ELLY WILKS DO 05/12/18 Problem Qualifiers ELLY WILKS DO May 12, 2018 21:00
[2018-05-12] MEDS ORDERED: KETOROLAC 30 MG/ML VIAL. IV ONE (21:15)
[2018-05-12] MEDS ORDERED: IOHEXOL 300 MG/ML 100ML VIAL. IV ONE (21:30)
[2018-05-12 22:08] VITALS: BP 108/67
[2018-05-12 22:13] LABS: BASO % 1 % (0-3); EOS # 0.2 x10^3/uL (0.0-0.7); EOS % 4 % (0-3); HEMATOCRIT 36.3 % (36.0-47.0); HEMOGLOBIN 11.9 g/dL (12.0-15.5); LYMPH # 2.1 x10^3/uL (1.0-4.8); LYMPH % 37 % (24-48); MEAN CORPUSCULAR HEMOGLOBIN 31 pg (25-35); MEAN CORPUSCULAR HGB CONC 33 g/dL (31-37); MEAN CORPUSCULAR VOLUME 93 fL (79-100); MONO # 0.5 x10^3/uL (0.0-1.1); MONO % 8 % (0-9); NEUT % 51 % (31-73); PLATELET COUNT 190 x10^3/uL (140-400); RED BLOOD COUNT 3.89 x10^6/uL (3.50-5.40); WHITE BLOOD COUNT 5.8 x10^3/uL (4.0-11.0)
[2018-05-12 22:20] LABS: CALCIUM 8.6 mg/dL (8.5-10.1); CREATININE 0.7 mg/dL (0.6-1.0); GFR 95.2; POTASSIUM 3.8 mmol/L (3.5-5.1)
[2018-05-12 22:27] LABS: ALBUMIN 3.5 g/dL (3.4-5.0); TOTAL BILIRUBIN 0.1 mg/dL (0.2-1.0); TOTAL PROTEIN 7.1 g/dL (6.4-8.2)
[2018-05-12] MEDS ORDERED: ACET500T68 PO (22:28)
[2018-05-12] MEDS ORDERED: MORPHINE SULFATE 4 MG/ML VIAL. IV ONE (23:00)
--- NOTE | 2018-05-12 23:59 | RAD ---
PQRS Compliance statement: One or more of the following individualized dose reduction techniques were utilized for this examination: 1. Automated exposure control. 2. Adjustment of the mA and/or kV according to patient size. 3. Use of iterative reconstruction technique. Indication:Right upper quadrant pain; Omni 300, 75ml TECHNIQUE: CT abdomen and pelvis with IV contrast with multiplanar reformats. COMPARISON: 03/03/2016 FINDINGS: Heart is normal in size. No pericardial or pleural effusion. Clear lung bases. Liver, spleen, gallbladder, pancreas, adrenals and right kidney are within normal limits. Punctate nonobstructing left renal stone. No free pelvic fluid or ascites. Most likely a corpus luteal cyst in the right ovary. Normal appendix. No bowel obstruction. Anteverted uterus. Urinary bladder demonstrates no radiopaque stone. No pneumoperitoneum. No suspicious bony lesion. IMPRESSION: No acute findings. Electronically signed by: Fransisco Monge DO (05/12/2018 11:57 PM) [facility]
[2018-05-13] MEDS ORDERED: SULF1TAB24 PO (00:33)
[2018-05-13] MEDS ORDERED: IOHEXOL 300 MG/ML 100ML VIAL. ONE (04:23)
== END 2018-05-13 00:36 | disposition home or self-care (01) ==
LOC: ER 19:31
DX: N39.0 Urinary tract infection, site not specified (principal); E78.00 Pure hypercholesterolemia, unspecified; G89.29 Other chronic pain; Z98.51 Tubal ligation status
CPT/HCPCS: 36415; 74177; 80053; 81001; 81025; 83690; 85025; 87086; 96374; 96375; 99284; J1885; J2270; Q9967

== ENCOUNTER 2018-12-16 14:43 | Emergency (ER) | payer MEDICAID, OTHER ==
[~2018-12-16] VITALS: Ht 157.5 cm; Wt 114.3 kg
[~2018-12-16 14:43] MED LIST changes: +ACET500T68 PO; +SULF1TAB24 PO
[2018-12-16 15:56] LABS: BILIRUBIN,URINE NEGATIVE (NEG); CLARITY,URINE CLEAR; COLOR,URINE YELLOW; NITRITE,URINE NEGATIVE (NEG); PH,URINE 7.5; PROTEIN,URINE NEGATIVE (NEG-TRACE); UROBILINOGEN,URINE 0.2 mg/dL (0.2 mg/dL)
[2018-12-16] MEDS ORDERED: ONDANSETRON PF 4 MG/2 ML VIAL. IV ONE (16:00)
[2018-12-16] MEDS ORDERED: IV NORMAL SALINE 1000ML BAG 1,000 ML IV ONE (16:00)
[2018-12-16] MEDS ORDERED: fentaNYL PF VIAL 100 MCG/2 ML VIAL IV ONE (16:00)
[2018-12-16 16:15] LABS: BACTERIA,URINE FEW /HPF (0-FEW); RBC,URINE 0 /HPF (0-2); SQUAMOUS EPITHELIAL CELL,UR OCC /LPF
--- NOTE | 2018-12-16 16:27 | RAD ---
i limited abdomen ultrasound study right upper quadrant Clinical indications: Right upper quadrant abdominal pain. FINDINGS: No focal enlargement of the pancreas is seen. There is diffuse attenuation of sound throughout the liver which limits sonographic evaluation of the liver for focal hepatic masses. This sound attenuation is significant. This may be seen with fatty infiltration of the liver. The liver measures 20.9 cm in length which is enlarged. The gallbladder is normal and no gallstones are seen. The extra hepatic bile duct measures 3.5 mm in caliber which is normal. The length of the right kidney is 11.2 cm. The superior pole of the right kidney is poorly visualized due to fatty infiltration of the liver. No hydronephrosis or renal mass is seen on this side otherwise. IMPRESSION: Hepatomegaly. Significant fatty infiltration of the liver. Normal sonographic evaluation of the gallbladder. Electronically signed by: Justin Ba MD (12/16/2018 4:24 PM) [facility]
--- NOTE | 2018-12-16 16:33 | PHYS DOC ---
Past Medical History Past Medical History: GERD, High Cholesterol, Other Additional Past Medical Histor: hx iv meth use, CHRONIC BACK PAIN Past Surgical History: Tubal ligation, Other Additional Past Surgical Histo: jaw repair Alcohol Use: None Drug Use: None Adult General Chief Complaint Chief Complaint: ABDOMINAL PAIN HPI HPI Patient is a 38 year old male who presents to the emergency department with complaints of right upper quadrant abdominal pain, epigastric pain, fatigue, body aches, and increased urine frequency for the last 2 days. Patient currently rates her pain 8 out of 10 on pain scale, she denies any alleviating factors. Patient states she has been out of her omeprazole for the last 2 weeks. Her last menstrual cycle was on September 26, 2018 when she reports a history of a tubal ligation. She denies any concerns of . Patient reports that the pain increases with movement and pressure applied. Review of Systems Review of Systems Constitutional: Denies fever or chills [] Eyes: Denies change in visual acuity, redness, or eye pain [] HENT: Denies nasal congestion or sore throat [] Respiratory: Denies cough or shortness of breath [] Cardiovascular: No additional information not addressed in HPI [] GI: Denies bloody stools, vomiting, or diarrhea; see history of present illness : Denies dysuria or hematuria; see history of present illness[] Musculoskeletal: Denies back pain or joint pain [] Integument: Denies rash or skin lesions [] Neurologic: Denies headache Complete systems were reviewed and found to be within normal limits, except as documented in this note. Current Medications Current Medications Current Medications Medications (Trade) Dose Ordered Sig/Ruel Start Time Stop Time Status Last Admin Dose Admin Fentanyl Citrate (Fentanyl 2ml Vial) 50 mcg 1X ONCE 12/16/18 16:00 12/16/18 16:01 DC 12/16/18 16:26 50 MCG Multi-Ingredient Mouthwash/Gargle (Gi Cocktail) 20 ml 1X ONCE 12/16/18 17:15 12/16/18 17:16 DC 12/16/18 17:11 20 ML Ondansetron HCl (Zofran) 4 mg 1X ONCE 12/16/18 16:00 12/16/18 16:01 DC 12/16/18 16:26 4 MG Sodium Chloride 1,000 ml @ 1,000 mls/hr 1X ONCE 12/16/18 16:00 12/16/18 16:59 DC 12/16/18 16:26 1,000 MLS/HR Allergies Allergies Allergies Coded Allergies Type Severity Reaction Last Updated Verified No Known Drug Allergies 12/11/17 No Physical Exam Physical Exam Constitutional: Well developed, well nourished, no acute distress, non-toxic appearance, obese. [] HENT: Normocephalic, atraumatic, bilateral external ears normal, oropharynx moist, no oral exudates, nose normal. [] Eyes: PERRLA, EOMI, conjunctiva normal, no discharge. [] Neck: Normal range of motion, no tenderness, supple, no stridor. [] Cardiovascular:Heart rate regular rhythm, no murmur [] Lungs & Thorax: Bilateral breath sounds clear to auscultation [] Abdomen: Bowel sounds normal, soft, RUQ and epigastric TTP, No rebound tender ness, no guarding, no masses, no pulsatile masses. [] Skin: Warm, dry, no erythema, no rash. [] Back: No tenderness, no CVA tenderness. [] Extremities: No cyanosis, no clubbing, ROM intact, no edema. [] Neurologic: Alert and oriented X 3, no focal deficits noted. [] Psychologic: Affect normal, judgement normal, mood normal. [] Current Patient Data Vital Signs Vital Signs Date Time Temp Pulse Resp B/P (MAP) Pulse Ox O2 Delivery O2 Flow Rate FiO2 12/16/18 16:26 18 12/16/18 15:28 98.9 102 139/74 (95) 100 Room Air 98.9 Lab Values Laboratory Tests Test 12/16/18 15:30 12/16/18 16:45 Urine Color Yellow Urine Clarity Clear Urine pH 7.5 Urine Specific [place] 1.025 Urine Protein Negative mg/dL (NEG-TRACE) Urine Glucose (UA) Negative mg/dL (NEG) Urine Ketones (Stick) Negative mg/dL (NEG) Urine Blood Negative (NEG) Urine Nitrite Negative (NEG) Urine Bilirubin Negative (NEG) Urine Urobilinogen Dipstick 0.2 mg/dL (0.2 mg/dL) Urine Leukocyte Esterase Negative (NEG) Urine RBC 0 /HPF (0-2) Urine WBC 1-4 /HPF (0-4) Urine Squamous Epithelial Cells Occ /LPF Urine Bacteria Few /HPF (0-FEW) Urine Mucus Mod /LPF POC Urine HCG, Qualitative Hcg negative (Negative) White Blood Count 5.0 x10^3/uL (4.0-11.0) Red Blood Count 3.99 x10^6/uL (3.50-5.40) Hemoglobin 12.6 g/dL (12.0-15.5) Hematocrit 37.4 % (36.0-47.0) Mean Corpuscular Volume 94 fL (79-100) Mean Corpuscular Hemoglobin 32 pg (25-35) Mean Corpuscular Hemoglobin Concent 34 g/dL (31-37) Red Cell Distribution Width 14.2 % (11.5-14.5) Platelet Count 193 x10^3/uL (140-400) Neutrophils (%) (Auto) 57 % (31-73) Lymphocytes (%) (Auto) 32 % (24-48) Monocytes (%) (Auto) 8 % (0-9) Eosinophils (%) (Auto) 3 % (0-3) Basophils (%) (Auto) 1 % (0-3) Neutrophils # (Auto) 2.9 x10^3/uL (1.8-7.7) Lymphocytes # (Auto) 1.6 x10^3/uL (1.0-4.8) Monocytes # (Auto) 0.4 x10^3/uL (0.0-1.1) Eosinophils # (Auto) 0.1 x10^3/uL (0.0-0.7) Basophils # (Auto) 0.0 x10^3/uL (0.0-0.2) Sodium Level 140 mmol/L (136-145) Potassium Level 3.7 mmol/L (3.5-5.1) Chloride Level 110 mmol/L (98-107) H Carbon Dioxide Level 18 mmol/L (21-32) L Anion Gap 12 (6-14) Blood Urea Nitrogen 11 mg/dL (7-20) Creatinine 0.7 mg/dL (0.6-1.0) Estimated GFR (Cockcroft-Gault) 94.7 BUN/Creatinine Ratio 16 (6-20) Glucose Level 91 mg/dL (70-99) Calcium Level 8.6 mg/dL (8.5-10.1) Magnesium Level 2.1 mg/dL (1.8-2.4) Total Bilirubin 0.1 mg/dL (0.2-1.0) L Aspartate Amino Transferase (AST) 18 U/L (15-37) Alanine Aminotransferase (ALT) 25 U/L (14-59) Alkaline Phosphatase 69 U/L (46-116) Total Protein 7.3 g/dL (6.4-8.2) Albumin 3.7 g/dL (3.4-5.0) Albumin/Globulin Ratio 1.0 (1.0-1.7) Lipase 129 U/L (73-393) Laboratory Tests 12/16/18 16:45 Laboratory Tests 12/16/18 16:45 EKG EKG [] Radiology/Procedures Radiology/Procedures PROCEDURE: ABDOMEN LTD i limited abdomen ultrasound study right upper quadrant Clinical indications: Right upper quadrant abdominal pain. FINDINGS: No focal enlargement of the pancreas is seen. There is diffuse attenuation of sound throughout the liver which limits sonographic evaluation of the liver for focal hepatic masses. This sound attenuation is significant. This may be seen with fatty infiltration of the liver. The liver measures 20.9 cm in length which is enlarged. The gallbladder is normal and no gallstones are seen. The extra hepatic bile duct measures 3.5 mm in caliber which is normal. The length of the right kidney is 11.2 cm. The superior pole of the right kidney is poorly visualized due to fatty infiltration of the liver. No hydronephrosis or renal mass is seen on this side otherwise. IMPRESSION: Hepatomegaly. Significant fatty infiltration of the liver. Normal sonographic evaluation of the gallbladder. [] Course & Med Decision Making Course & Med Decision Making Pertinent Labs and Imaging studies reviewed. (See chart for details) dx:GERD CBC, CMP, UA unremarkable. Normal gallbladder on US PT was given 4 mg of morphine, 4 mg of zofran, and a liter of NS, reported some relief of pain still rates 5/10 after meds. A GI cocktail was ordered and pt reported decreased pain down to 3/10 after this med. Pt states she just remembered that she has been out of her omeprazole for the last 2 weeks. Rx for omeprazole written. Follow up with PCP in 1-2 days, return to the ER if sx worsen. Patient verbalized an understanding of home care, medications, follow-up, and return to ED instructions and was in agreement with the plan of care. [] Dragon Disclaimer Dragon Disclaimer This electronic medical record was generated, in whole or in part, using a voice recognition dictation system. Departure Departure Impression: Primary Impression: GERD (gastroesophageal reflux disease) Disposition: 01 HOME, SELF-CARE Condition: STABLE Referrals: IRVIN TAVAREZ MD (PCP) Patient Instructions: Diet for Gastroesophageal Reflux Disease, Adult, [id number], Gastroesophageal Reflux Disease, Adult, [id number] Additional Instructions: Fill the prescription and take as directed. Follow the diet instructions provided. Follow up with your primary care doctor in 1-2 days. Return to the ER if symptoms worsen. Scripts Omeprazole (OMEPRAZOLE) 20 Mg Tablet.dr 1 TAB PO DAILY for 30 Days, #30 TAB 1 Refill Prov: KISHOR ANDERSEN APRN 12/16/18 Problem Qualifiers Primary Impression: GERD (gastroesophageal reflux disease) Esophagitis presence: esophagitis presence not specified Qualified Codes: K21.9 - Gastro-esophageal reflux disease without esophagitis KISHOR ANDERSEN LEGAL ASSISTANT Dec 16, 2018 16:33
[2018-12-16 16:51] LABS: BASO % 1 % (0-3); EOS # 0.1 x10^3/uL (0.0-0.7); EOS % 3 % (0-3); HEMATOCRIT 37.4 % (36.0-47.0); HEMOGLOBIN 12.6 g/dL (12.0-15.5); LYMPH # 1.6 x10^3/uL (1.0-4.8); LYMPH % 32 % (24-48); MEAN CORPUSCULAR HEMOGLOBIN 32 pg (25-35); MEAN CORPUSCULAR HGB CONC 34 g/dL (31-37); MEAN CORPUSCULAR VOLUME 94 fL (79-100); MONO # 0.4 x10^3/uL (0.0-1.1); MONO % 8 % (0-9); NEUT # 2.9 x10^3/uL (1.8-7.7); NEUT % 57 % (31-73); PLATELET COUNT 193 x10^3/uL (140-400); RED BLOOD COUNT 3.99 x10^6/uL (3.50-5.40); RED CELL DISTRIBUTION WIDTH 14.2 % (11.5-14.5)
[2018-12-16 17:15] LABS: CALCIUM 8.6 mg/dL (8.5-10.1); CREATININE 0.7 mg/dL (0.6-1.0); GFR 94.7; POTASSIUM 3.7 mmol/L (3.5-5.1)
[2018-12-16] MEDS ORDERED: LIDO:MAALOX 1:1 20 ML SINGLE DOSE. SWSW ONE (17:15)
[2018-12-16 17:19] LABS: ALBUMIN 3.7 g/dL (3.4-5.0); MAGNESIUM 2.1 mg/dL (1.8-2.4); TOTAL BILIRUBIN 0.1 mg/dL (0.2-1.0); TOTAL PROTEIN 7.3 g/dL (6.4-8.2)
[2018-12-16] MEDS ORDERED: OMEP20TA8 PO (17:44)
[2018-12-16 17:45] VITALS: BP 108/55
== END 2018-12-16 17:45 | disposition home or self-care (01) ==
LOC: ER 14:43
DX: K21.9 Gastro-esophageal reflux disease without esophagitis (principal); R53.83 Other fatigue; M79.18 Myalgia, other site; E78.00 Pure hypercholesterolemia, unspecified; G89.29 Other chronic pain; Z98.51 Tubal ligation status
CPT/HCPCS: 36415; 76705; 80053; 81001; 81025; 83690; 83735; 85025; 96374; 96375; 99285; J2405; J3010; J7030

== ENCOUNTER 2019-01-10 16:07 | Emergency (ER) | payer MEDICAID ==
[~2019-01-10] VITALS: Ht 157.5 cm; Wt 115.7 kg
[~2019-01-10 16:07] MED LIST changes: +OMEP20TA8 PO
[2019-01-10 16:12] VITALS: BP 167/78
[2019-01-10] MEDS ORDERED: ACETAMINOPHEN 500 MG TABLET PO ONE (17:00)
[2019-01-10] MEDS ORDERED: DEXAMETHASONE SOD PHOS 20 MG/5 ML VIAL. PO ONE (17:00)
--- NOTE | 2019-01-10 17:02 | PHYS DOC ---
Past Medical History Past Medical History: No Pertinent History Additional Past Medical Histor: hx iv meth use, CHRONIC BACK PAIN (KISHOR ANDERSEN APRN) Past Surgical History: No Surgical History Additional Past Surgical Histo: jaw repair (KISHOR ANDERSEN APRN) Alcohol Use: Occasionally Drug Use: None (KISHOR ANDERSEN APRN) Adult General Chief Complaint Chief Complaint: SORE THROAT HPI HPI Patient is a 38 year old female, accompanied by her family, who presents to the emergency department with complaints of a sore throat for the last 3 days. Patient also complains of bilateral ear pain and nasal congestion. She states that the glands in her throat feel enlarged. Patient denies any fever, runny nose, cough, abdominal pain, nausea, vomiting, diarrhea, wheezing, shortness of breath, rash, or body aches. She states at 3:00 this morning she woke up and the pain was so severe she cannot sleep. Patient currently rates her pain 7 out of 10 on the pain scale, states she has been taking ibuprofen for relief of the pain with little benefit. Patient denies any difficulty swallowing or stridor. Her mother and child both have similar symptoms. All other ROS is neg unless otherwise noted in HPI. (KISHOR ANDERSEN APRN) Review of Systems Review of Systems See Above (KISHOR ANDERSEN APRN) Current Medications Current Medications Current Medications Medications (Trade) Dose Ordered Sig/Ruel Start Time Stop Time Status Last Admin Dose Admin Acetaminophen (Tylenol) 1,000 mg 1X ONCE 01/10/19 17:00 01/10/19 17:01 DC 01/10/19 16:59 1,000 MG Dexamethasone Sodium Phosphate (Decadron) 10 mg 1X ONCE 01/10/19 17:00 01/10/19 17:01 DC 01/10/19 16:59 10 MG (DEANDRE ROBERSON MD) Allergies Allergies Allergies Coded Allergies Type Severity Reaction Last Updated Verified No Known Drug Allergies 12/11/17 No (DEANDRE ROBERSON MD) Physical Exam Physical Exam See Above Constitutional: Well developed, well nourished, no acute distress, non-toxic appearance, obese [] HENT: Normocephalic, atraumatic, bilateral external ears normal, bilateral TMs normal, posterior pharynx without erythema or exudate, small ulceration noted to the posterior pharynx consistent with apthous ulcer, oropharynx moist, no oral exudates, nasal turbinates edematous and erythematous bilaterally Eyes: PERRLA, EOMI, conjunctiva normal, no discharge. [] Neck: Normal range of motion, no tenderness, supple, no stridor. [] Cardiovascular:Heart rate regular rhythm, no murmur [] Lungs & Thorax: Bilateral breath sounds clear to auscultation [] Skin: Warm, dry, no erythema, no rash. [] Back: No tenderness Extremities: No cyanosis, no clubbing, ROM intact, no edema. [] Neurologic: Alert and oriented X 3, no focal deficits noted. [] Psychologic: Affect normal, judgement normal, mood normal. [] (KISHOR ANDERSEN APRN) Current Patient Data Vital Signs Vital Signs Date Time Temp Pulse Resp B/P (MAP) Pulse Ox O2 Delivery O2 Flow Rate FiO2 01/10/19 16:12 98.2 98 17 167/78 (107) 97 Room Air 98.2 (DEANDRE ROBERSON MD) EKG EKG [] (KISHOR ANDERSEN APRN) Radiology/Procedures Radiology/Procedures [] (KISHOR ANDERSEN APRN) Course & Med Decision Making Course & Med Decision Making Pertinent Labs and Imaging studies reviewed. (See chart for details) [] (KISHOR ANDERSEN APRN) Course & Med Decision Making Vital Staff Physician Addendum: I was working in the ER during the course of this patient's visit. I was available for consultation as needed, but I was not directly involved in the care of this patient. (DEANDRE ROBERSON MD) Dragon Disclaimer Dragon Disclaimer This electronic medical record was generated, in whole or in part, using a voice recognition dictation system. (KISHOR ANDERSEN APRN) Departure Departure Impression: Primary Impression: URI (upper respiratory infection) Additional Impressions: Pharyngitis, acute Aphthous ulcer of pharynx or hypopharynx Disposition: 01 HOME, SELF-CARE Condition: STABLE Referrals: IRVIN TAVAREZ MD (PCP) Patient Instructions: Oral Ulcers, Upper Respiratory Infection, Adult, [id number], Viral Pharyngitis Additional Instructions: Warm salt water gargles as needed for discomfort. Recommend use of a Cool mist humidifier in room at bedtime. Alternate Tylenol or ibuprofen as needed for pain/fever. Increase clear fluids. Avoid airway triggers such as smoke, fragrance, dust, and pollen. Follow-up with your primary care doctor if symptoms persist, return to the ER if symptoms worsen. Problem Qualifiers Primary Impression: URI (upper respiratory infection) URI type: unspecified URI Qualified Codes: J06.9 - Acute upper respiratory infection, unspecified Additional Impressions: Pharyngitis, acute Pharyngitis/tonsillitis etiology: unspecified etiology Qualified Codes: J02.9 - Acute pharyngitis, unspecified KISHOR ANDERSEN APRN Jan 10, 2019 17:02 DEANDRE ROBERSON MD Jan 10, 2019 17:19
== END 2019-01-10 17:08 | disposition home or self-care (01) ==
LOC: ER 16:07
DX: J02.9 Acute pharyngitis, unspecified (principal); K12.0 Recurrent oral aphthae; H92.03 Otalgia, bilateral; G89.29 Other chronic pain
CPT/HCPCS: 99283; J1100

== ENCOUNTER 2021-01-07 16:29 | Emergency (ER) | payer MEDICAID ==
[~2021-01-07] VITALS: Ht 157.5 cm; Wt 112.2 kg
[2021-01-07 18:05] VITALS: BP 160/75
--- NOTE | 2021-01-07 18:56 | RAD ---
Exam: Left foot 3 views INDICATION: Pain TECHNIQUE: Frontal, lateral and oblique views of the left elbow Comparisons: None FINDINGS: Bone mineralization is normal. No acute or healed fractures. Soft tissues are unremarkable. Joint spa elaine are well-maintained. IMPRESSION: No acute osseous abnormality Electronically signed by: Can Wei MD (01/07/2021 6:54 PM) [facility]
[2021-01-07] MEDS ORDERED: NAPR-514 PO (19:29)
--- NOTE | 2021-01-07 19:30 | PHYS DOC ---
Past Medical History Past Medical History: No Pertinent History Additional Past Medical Histor: hx iv meth use, CHRONIC BACK PAIN (ANA OLIVER [place] [employer]) Past Surgical History: No Surgical History Additional Past Surgical Histo: jaw repair (BENITOANA [employer]) Smoking Status: Never Smoker Alcohol Use: None Drug Use: None (BENITOANA [employer]) General Adult EDM: Chief Complaint: FOOT INJURY PAIN HPI: HPI: Patient is a 40 year old female who presents the ED today complaining of 9 out of 10 left foot pain and swelling, describes the pain as sharp and intermittent, symptoms have been going on for 1 week, symptoms are worse on weightbearing. Patient denies any injuries. Denies anything relieving the pain. (REYNOLDHERNANANA Del Castillo [employer]) Review of Systems: Review of Systems: Constitutional: Denies fever or chills. [] Musculoskeletal: Reports left foot pain Integument: Denies rash. [] Neurologic: Denies headache, focal weakness or sensory changes. [] Psychiatric: Denies depression or anxiety. [] (ANA OLIVER [employer]) Heart Score: C/O Chest Pain: N/A Risk Factors: Risk Factors: DM, Current or recent (<one month) smoker, HTN, HLP, family history of CAD, obesity. Risk Scores: Score 0 - 3: 2.5% MACE over next 6 weeks - Discharge Home Score 4 - 6: 20.3% MACE over next 6 weeks - Admit for Clinical Observation Score 7 - 10: 72.7% MACE over next 6 weeks - Early Invasive Strategies (ANA OLIVER [employer]) Allergies: Allergies: Allergies Coded Allergies Type Severity Reaction Last Updated Verified No Known Drug Allergies 12/11/17 No (CHARANA Del Castillo [employer]) Physical Exam: PE: Constitutional: Well developed, well nourished, no acute distress, non-toxic appearance. [] Skin: Warm, dry, no erythema, no rash. [] Back: No tenderness, no CVA tenderness. [] Extremities: Left foot with no obvious deformity. Tenderness on palpation of the left heel. Full range of motion to the left foot, no navicular bone tenderness, no tenderness on the base of the fifth metatarsal of the left foot. +2 left pedal pulse. Cap refill less than 2 seconds in left toes Neurologic: Alert and oriented X 3, normal motor function, normal sensory function, no focal deficits noted. [] Psychologic: Affect normal, judgement normal, mood normal. [] (ANA OLIVER APRN) Current Patient Data: Vital Signs: Vital Signs Date Time Temp Pulse Resp B/P (MAP) Pulse Ox O2 Delivery O2 Flow Rate FiO2 01/07/21 18:05 99.0 95 16 160/75 (103) 99 Room Air 99.0 (ANA OLIVER APRN) EKG: EKG: [] (ANA OLIVER APRN) Radiology/Procedures: Radiology/Procedures: []PROCEDURE: FOOT LEFT 3V Exam: Left foot 3 views INDICATION: Pain TECHNIQUE: Frontal, lateral and oblique views of the left elbow Comparisons: None FINDINGS: Bone mineralization is normal. No acute or healed fractures. Soft tissues are unremarkable. Joint spaces are well-maintained. IMPRESSION: No acute osseous abnormality Electronically signed by: Can Romo MD (01/07/2021 6:54 PM) [facility] DICTATED and SIGNED BY: CAN ROMO MD DATE: 01/07/21 [id number] (ANA OLIVER APRN) Course & Med Decision Making: Course & Med Decision Making Pertinent Labs and Imaging studies reviewed. (See chart for details) This a 40-year-old female patient presented to the ED today with left foot pain and swelling that began a week ago, no known injury. Left foot x-rays inte rpreted by radiologist are negative for any acute findings. Discharge to home. Follow-up with Ortho or senior physical therapist. Ice elevation encouraged, OTC pain relievers (ANA OLIVER APRN) Dragon Disclaimer: Dragon Disclaimer: This electronic medical record was generated, in whole or in part, using a voice recognition dictation system. (ANA OLIVER APRN) Departure Departure Impression: Primary Impression: Left foot pain Disposition: 01 HOME / SELF CARE / HOMELESS Condition: STABLE Referrals: IRVIN TAVAREZ MD (PCP) MAXIMO OVIEDO DPM follow up in one week Patient Instructions: Musculoskeletal Pain Additional Instructions: You were seen for left foot pain, your left foot x-rays are negative for any acute findings, try to ice and elevate the extremity. You can wrap an Zackary ba ndage around your foot. Please follow-up with the provided senior physical therapist in 1 week Scripts Naproxen (NAPROXEN) 500 Mg Tablet 1 TAB PO BID for pain, #20 TAB 0 Refills Prov: ANA OLIVER APRN 01/07/21 Attending Signature Attending Signature I have reviewed the PA/OYSTER SHUCKER's note and plan of care. I was available for consultation as needed during the patient's visit in the emergency department. I agree with the clinical impression, plan, and disposition. (AYLA FRANCIS DO) ANA OLIVER APRN Jan 07, 2021 19:29 AYLA FRANCIS DO Jan 08, 2021 00:32
== END 2021-01-07 19:40 | disposition home or self-care (01) ==
LOC: ER 16:29
DX: M79.672 Pain in left foot (principal); R22.42 Localized swelling, mass and lump, left lower limb; G89.29 Other chronic pain
CPT/HCPCS: 73630; 99283